=== PATIENT | male | born 1940 | race Two or more races ===

== ENCOUNTER 2022-06-17 13:09 | Inpatient (IN) | payer OTHER ==
[~2022-06-17] VITALS: Ht 167.6 cm; Wt 129.7 kg
[2022-06-17] MEDS ORDERED: HYDRALAZINE HCL50 MG PO (13:18)
[2022-06-17] MEDS ORDERED: FUROSEMIDE40 MG PO (13:18)
[2022-06-17] MEDS ORDERED: METOLAZONE2.5 MG PO (13:18)
[2022-06-17] MEDS ORDERED: ELIQUIS2.5 MG PO (13:18)
[2022-06-17] MEDS ORDERED: METOPROLOL SUCC25 MG PO (13:19)
[2022-07-02] MEDS ORDERED: HYDRALAZINE HCL50 MG PO (17:28)
[2022-07-02] MEDS ORDERED: TOPROL XL25 M1 PO (17:28)
[2022-07-02] MEDS ORDERED: METOLAZONE2.5 MG PO (17:29)
[2022-07-02] MEDS ORDERED: FUROSEMIDE40 MG PO (17:30)
[2022-07-02] MEDS ORDERED: LEVOTHYROXINE50 MCG PO (17:31)
== END 2022-07-02 18:06 | disposition home or self-care (01) | DRG 291 ==
LOC: ER 13:09 → MEDI 19:58 → MEDJ 19:58
PROVIDERS: ADMIT Internal Medicine; ATTEND Internal Medicine
PROC: BW25ZZZ Computerized Tomography (CT Scan) of Chest, Abdomen and Pelvis (ICD-10-PCS; 2022-06-17)
PROC: B24BYZZ Ultrasonography of Heart with Aorta using Other Contrast (ICD-10-PCS; 2022-06-17)
PROC: 4A12X4Z Monitoring of Cardiac Electrical Activity, External Approach (ICD-10-PCS; 2022-06-17)
PROC: 0W993ZZ Drainage of Right Pleural Cavity, Percutaneous Approach (ICD-10-PCS; principal; 2022-06-19)
PROC: 0W9B3ZZ Drainage of Left Pleural Cavity, Percutaneous Approach (ICD-10-PCS; 2022-06-23)
PROC: 30233N1 Transfusion of Nonautologous Red Blood Cells into Peripheral Vein, Percutaneous Approach (ICD-10-PCS; 2022-06-26)
DX: I13.0 Hypertensive heart and chronic kidney disease with heart failure and stage 1 through stage 4 chronic kidney disease, or unspecified chronic kidney disease (principal); I50.33 Acute on chronic diastolic (congestive) heart failure; J91.8 Pleural effusion in other conditions classified elsewhere; N17.9 Acute kidney failure, unspecified; J98.11 Atelectasis; N39.0 Urinary tract infection, site not specified; B96.20 Unspecified Escherichia coli [E. coli] as the cause of diseases classified elsewhere; B95.2 Enterococcus as the cause of diseases classified elsewhere; D63.1 Anemia in chronic kidney disease; E11.22 Type 2 diabetes mellitus with diabetic chronic kidney disease; N18.9 Chronic kidney disease, unspecified; I48.91 Unspecified atrial fibrillation

== ENCOUNTER 2022-07-24 08:40 | Inpatient (IN) | payer OTHER ==
[~2022-07-24] VITALS: Ht 167.6 cm; Wt 56.7 kg
[~2022-07-24 08:40] MED LIST: ELIQUIS2.5 MG PO; FUROSEMIDE40 MG PO; HYDRALAZINE HCL50 MG PO; LEVOTHYROXINE50 MCG PO; METOLAZONE2.5 MG PO; METOPROLOL SUCC25 MG PO; TOPROL XL25 M1 PO
--- NOTE | 2022-07-24 08:58 | NUR ---
SE RECIBE PTE ALERTA Y ORIENTADO X3 PTE REFIERE QUE SE KATHERINE CAMINANDO, SE OBSERVA HEMATOMA AREA FRONTAL,NARIZ CON SANGRADO INTERMITENTE Y PIES CON LACERACION, SE LE HACE LA PREGUNTA SI PERDIO CONOCIMIENTO REFIERE NO, SE REALIZA LIMPIEZA DE LAS HERIDAS Y SE ASAD EN CASTILLO DE ESPERA
--- NOTE | 2022-07-24 10:38 | NUR ---
SE ORIENTA A PACIENTE SOBRE TRATAMIENTO EL MISMO REFIERE ENTENDER. SE LE ADM MEDICAMENTOS POR ORDEN MEDICA SE MARGARETH MEDIDAS ASEPTICAS. SE CANALIZA PACIENTE EN MANO DERECHA #22. Y SE MARGARETH MUESTRAS DE LAB, SE COLOCA PACIENTE EN CAMA #8 NEN COMPANIA DE FAMILIAR Y SE ENTREGA A PACIENTE A LIDER DEL TURNO OBSERVACION.
--- NOTE | 2022-07-24 15:42 | NUR ---
PTE ALERTA Y ACTIVO EN COMPANIA DE FAMILIAR,EN SOPHIE CON BARANDAS ELEVADSS,AREA DE VENOPUNCION PATENTE Y MARIOLA DE EDEMA CON HL.SE LE ADMINISTRA MEDICAMENTO SUMMER ORDEN MEDICA.PENDIENTE A RE-EVALUACION.
[2022-08-04] MEDS ORDERED: TOPROL XL25 M1 PO (17:42)
[2022-08-04] MEDS ORDERED: FUROSEMIDE40 MG PO (17:43)
[2022-08-04] MEDS ORDERED: LEVOTHYROXINE50 MCG PO (17:44)
[2022-08-04] MEDS ORDERED: NORVASC5 MG PO (17:47)
[2022-08-04] MEDS ORDERED: HYDRALAZINE HCL25 MG PO (17:53)
== END 2022-08-04 20:10 | disposition home or self-care (01) | DRG 291 ==
LOC: ER 08:40 → MEDJ 20:35 → SURH 20:35 → MEDJ 07-26 22:33
PROVIDERS: ADMIT Internal Medicine; ATTEND Internal Medicine
PROC: 4A12X4Z Monitoring of Cardiac Electrical Activity, External Approach (ICD-10-PCS; 2022-07-24)
PROC: BN25ZZZ Computerized Tomography (CT Scan) of Facial Bones (ICD-10-PCS; 2022-07-24)
PROC: BR20ZZZ Computerized Tomography (CT Scan) of Cervical Spine (ICD-10-PCS; 2022-07-24)
PROC: BW28ZZZ Computerized Tomography (CT Scan) of Head (ICD-10-PCS; 2022-07-24)
PROC: BW24ZZZ Computerized Tomography (CT Scan) of Chest and Abdomen (ICD-10-PCS; 2022-07-24)
PROC: B24BYZZ Ultrasonography of Heart with Aorta using Other Contrast (ICD-10-PCS; 2022-07-24)
PROC: 8E0ZXY6 Isolation (ICD-10-PCS; 2022-07-25)
PROC: 0W993ZZ Drainage of Right Pleural Cavity, Percutaneous Approach (ICD-10-PCS; principal; 2022-07-29)
PROC: 0W9B3ZZ Drainage of Left Pleural Cavity, Percutaneous Approach (ICD-10-PCS; 2022-07-30)
DX: I13.0 Hypertensive heart and chronic kidney disease with heart failure and stage 1 through stage 4 chronic kidney disease, or unspecified chronic kidney disease (principal); I50.23 Acute on chronic systolic (congestive) heart failure; U07.1 COVID-19; J91.8 Pleural effusion in other conditions classified elsewhere; N17.9 Acute kidney failure, unspecified; E11.22 Type 2 diabetes mellitus with diabetic chronic kidney disease; N18.9 Chronic kidney disease, unspecified; D63.1 Anemia in chronic kidney disease; D50.8 Other iron deficiency anemias; I48.91 Unspecified atrial fibrillation; E03.9 Hypothyroidism, unspecified; Z79.84 Long term (current) use of oral hypoglycemic drugs; S02.2XXA Fracture of nasal bones, initial encounter for closed fracture; S09.93XA Unspecified injury of face, initial encounter; W18.30XA Fall on same level, unspecified, initial encounter; Y93.01 Activity, walking, marching and hiking; Y92.410 Unspecified street and highway as the place of occurrence of the external cause

== ENCOUNTER 2022-09-03 16:49 | Inpatient (IN) | payer OTHER ==
[~2022-09-03] VITALS: Ht 165.1 cm; Wt 57.2 kg
[~2022-09-03 16:49] MED LIST changes: +HYDRALAZINE HCL25 MG PO; +NORVASC5 MG PO
--- NOTE | 2022-09-03 17:23 | NUR ---
PTE SE OBSERVA A/O X4. PTE SE OBSERVA CON PRESION BALTA Y SE LE REALIZA EKG. ES EVALUADO POR DR MONK. PTE SE OBSERVA CON EDEMA EN EXTREMIDADES SUPERIORES Y INFERIORES.
--- NOTE | 2022-09-03 19:15 | NUR ---
SE EDUCA A PTE SOBRE TX MEDICO TALI REFIERE ENTENDER, SE MARGARETH MUESTRAS DE LABORATORIO UTILIZANDO MEDIDAS ASEPTICAS. SE COLOCA H/L A PTE Y SE ADMINISTRAN MEDICAMENTOS LOS CUALES TOLERA. SE NOTIFICA ESTUDIO DE RX PENDIENTE.
[2022-09-12] MEDS ORDERED: HYDRALAZINE HCL50 MG PO (17:06)
[2022-09-12] MEDS ORDERED: FUROSEMIDE40 MG PO (17:06)
[2022-09-12] MEDS ORDERED: ELIQUIS2.5 MG PO (17:06)
[2022-09-12] MEDS ORDERED: CARVEDILOL3.125 MG PO (17:06)
[2022-09-12] MEDS ORDERED: NIFEDIPINE ER30 M1 PO (17:07)
== END 2022-09-12 17:37 | disposition home or self-care (01) | DRG 291 ==
LOC: ER 16:49 → MEDI 09-04 00:44 → SEC-K 09-04 05:00 → MEDI 09-04 08:38
PROVIDERS: ADMIT Internal Medicine; ATTEND Internal Medicine
PROC: 4A12X4Z Monitoring of Cardiac Electrical Activity, External Approach (ICD-10-PCS; 2022-09-04)
PROC: B24BYZZ Ultrasonography of Heart with Aorta using Other Contrast (ICD-10-PCS; 2022-09-04)
PROC: BW24ZZZ Computerized Tomography (CT Scan) of Chest and Abdomen (ICD-10-PCS; 2022-09-04)
PROC: 30233N1 Transfusion of Nonautologous Red Blood Cells into Peripheral Vein, Percutaneous Approach (ICD-10-PCS; 2022-09-06)
PROC: 0W993ZZ Drainage of Right Pleural Cavity, Percutaneous Approach (ICD-10-PCS; principal; 2022-09-09)
PROC: 0W9B3ZZ Drainage of Left Pleural Cavity, Percutaneous Approach (ICD-10-PCS; 2022-09-10)
DX: I13.0 Hypertensive heart and chronic kidney disease with heart failure and stage 1 through stage 4 chronic kidney disease, or unspecified chronic kidney disease (principal); I50.33 Acute on chronic diastolic (congestive) heart failure; I16.9 Hypertensive crisis, unspecified; J91.8 Pleural effusion in other conditions classified elsewhere; N39.0 Urinary tract infection, site not specified; N17.9 Acute kidney failure, unspecified; I48.20 Chronic atrial fibrillation, unspecified; D63.8 Anemia in other chronic diseases classified elsewhere; N18.9 Chronic kidney disease, unspecified; Z74.01 Bed confinement status

== ENCOUNTER 2022-10-02 09:29 | Inpatient (IN) | payer OTHER ==
[~2022-10-02] VITALS: Ht 167.6 cm; Wt 54.4 kg
[~2022-10-02 09:29] MED LIST changes: +CARVEDILOL3.125 MG PO; +NIFEDIPINE ER30 M1 PO
--- NOTE | 2022-10-02 09:58 | NUR ---
SE RECIBE PTE ALERTA Y ORIENTADO X3 EL MISMO REFIERE INFLAMACION EN PIERNAS, LAS CUALE S SE OBSERVAN INFLAMADAS, SE OBSERVA TORAX INFLAMADO. PACIENTE REFIERE QUE A PRESENTADO HX DE AGUA EN PULMONES Y PROBLEMAS EN RINONES.
--- NOTE | 2022-10-02 10:26 | NUR ---
PACIENTE EVALUADO POR DR BEATTY QUIEN ORDENA TRATAMIENTO MEDICO, SE LE ORIENTA A PACIENTE Y FAMILIAR SOBRE EL MISMO Y VERBALIZA ENTENDER, SE LE COLECTAN MUESTRAS DE LABORATORIO Y SE LE ADMINISTRA MED SUMMER ORDEN. SE LE REALIZA EKG Y SE NOTIFICAN TERAPIAS A PERSONAL DE TERAPIA RESPIRTORIA ABG PENDIETNES.
--- NOTE | 2022-10-02 10:46 | NUR ---
SE CANALIZA PACIENTE BAJO MEDIDAS ASEPTICAS, SE LE COLOCA H/L CON ANGIO # 20 EL MISMO SE ENCUENTRA PATENTE, MARIOLA DE EDEMA Y ERITEMA.
--- NOTE | 2022-10-02 11:32 | NUR ---
BP MANUAL: 220/110 mmHg SE LE NOTIFICA A DR BEATTY QUIEN ORDENA CATAPRESS 0.2MG PO, SE ADMINISTRAN MED SUMMER ORDEN AL MOMENTO PACIENTE TOLERA EL MISMO Y NO PRESENTA REACCION ADVERSA.
--- NOTE | 2022-10-02 11:36 | NUR ---
SE NOTIFICA ESTUDIO DE CT A PERSONAL CORRESPONDIENTE.
--- NOTE | 2022-10-02 15:20 | NUR ---
SE RECIBE PTE ALERTA Y ORIENTADO X3 EN SOPHIE BAJA CON BARANDAS ELEVADAS POR SEGURIDAD. SE OBSERVA PTE CON BUEN PATRON RESPIRATORIO. H/L EN PERIFERAL LT CON ANGIO #20 PATENTE. PEND RESULTADOS DE LABORATORIO Y CONS CON DR. MCKENZIE.
== END 2022-10-07 22:37 | disposition home or self-care (01) | DRG 291 ==
LOC: ER 09:29 → SEC-K 16:33 → MEDI 16:33 → MEDJ 10-03 15:41 → SEC-K 10-03 15:55 → MEDJ 10-04 00:10 → SEC-K 10-04 00:13 → MEDJ 10-04 17:51 → MEDI 10-04 18:29
PROVIDERS: ADMIT Internal Medicine; ATTEND Internal Medicine
PROC: BW24ZZZ Computerized Tomography (CT Scan) of Chest and Abdomen (ICD-10-PCS; 2022-10-02)
PROC: B24BZZZ Ultrasonography of Heart with Aorta (ICD-10-PCS; 2022-10-02)
PROC: 0W993ZZ Drainage of Right Pleural Cavity, Percutaneous Approach (ICD-10-PCS; principal; 2022-10-03)
PROC: 30233N1 Transfusion of Nonautologous Red Blood Cells into Peripheral Vein, Percutaneous Approach (ICD-10-PCS; 2022-10-04)
DX: I13.0 Hypertensive heart and chronic kidney disease with heart failure and stage 1 through stage 4 chronic kidney disease, or unspecified chronic kidney disease (principal); I50.33 Acute on chronic diastolic (congestive) heart failure; I48.20 Chronic atrial fibrillation, unspecified; J91.8 Pleural effusion in other conditions classified elsewhere; N17.9 Acute kidney failure, unspecified; N39.0 Urinary tract infection, site not specified; N18.30 Chronic kidney disease, stage 3 unspecified; D63.1 Anemia in chronic kidney disease; E03.9 Hypothyroidism, unspecified; Z79.01 Long term (current) use of anticoagulants

== ENCOUNTER 2022-10-13 12:36 | Emergency (ER) | payer OTHER ==
[~2022-10-13] VITALS: Ht 167.6 cm; Wt 47.6 kg
== END 2022-10-13 19:37 | disposition home or self-care (01) ==
LOC: ER 12:36
DX: I10 Essential (primary) hypertension (principal)

== ENCOUNTER 2022-12-18 17:08 | Inpatient (IN) | payer OTHER ==
[~2022-12-18] VITALS: Ht 167.6 cm; Wt 54.4 kg
[2022-12-18] MEDS ORDERED: HYDRALAZINE HCL50 MG (17:36)
[2022-12-18] MEDS ORDERED: LOSARTAN POTASS50 MG (17:37)
[2022-12-18 18:23] LABS: HEMATOCRIT 24.8 % (39.0-48.0); MEAN CORPUSCULAR HGB CONC 32.9 g/dl (32.0-36.0); PLATELET COUNT 169 K/uL (150-450); RED BLOOD COUNT 3.31 M/uL (4.00-6.00); RED CELL DISTRIBUTION WIDTH 16.4 % (11.5-14.5)
[2022-12-18 18:28] LABS: MEAN CORPUSCULAR HEMOGLOBIN 24.7 pg (27.00-32.0)
[2022-12-18 18:29] LABS: HEMOGLOBIN 8.2 g/dL (13-16.00)
[2022-12-18 18:41] LABS: ALBUMIN 3.1 gm/dL (3.4-5.0); BILIRUBIN TOTAL 0.24 mg/dL (0.3-1.2); CALCIUM 8.5 mg/dL (8.5-10.1); CREATININE SERUM 2.09 mg/dL (0.70-1.30); GFR 30.55; GLOBULINA 2.9 G/DL (2.4-3.5); POTASSIUM 4.86 mEq/L (3.5-5.1)
[2022-12-18 21:52] LABS: MAGNESIUM 2.1 mg/dL (1.8-2.4); PHOSPHOROUS 3.8 mg/dL (2.5-4.9)
[2022-12-18 21:59] LABS: D DIMER 8.42 MG/L
[2022-12-18 22:04] LABS: INR 1.04; PROTHROMBIN TIME 10.9 SECONDS (9.0-11.5)
[2022-12-18 23:33] LABS: ABG PH 7.419 (7.35-7.45); ABG PO2 95.7 mmHg (80-100); ABG pCO2 35.2 mmHg (35-45); BASE EXCESS -1.6 mmol/l; BICARBONATE 22.3 mmol/l (23-25); Tco2 23.4 mmol/l
[2022-12-18 23:34] LABS: allen test SATISFACTORY; o2 21 %; puncture site RADIAL LEFT
[2022-12-18 23:35] LABS: SaO2 97.5 %
[2022-12-20 08:26] LABS: HEMATOCRIT 29.2 % (39.0-48.0); HEMOGLOBIN 9.3 g/dL (13-16.00); MEAN CELL VOLUME 76.2 fL (80.0-100.00); MEAN CORPUSCULAR HEMOGLOBIN 24.3 pg (27.00-32.0); MEAN CORPUSCULAR HGB CONC 31.8 g/dl (32.0-36.0); PLATELET COUNT 166 K/uL (150-450); RED BLOOD COUNT 3.83 M/uL (4.00-6.00); RED CELL DISTRIBUTION WIDTH 16.5 % (11.5-14.5)
[2022-12-20 08:29] LABS: ALBUMIN 3.1 gm/dL (3.4-5.0); CALCIUM 8.7 mg/dL (8.5-10.1); CREATININE SERUM 2.03 mg/dL (0.70-1.30); GFR 31.6; PHOSPHOROUS 4.3 mg/dL (2.5-4.9); POTASSIUM 5.18 mEq/L (3.5-5.1)
[2022-12-20 11:35] LABS: RH POSITIVE
[2022-12-21 18:19] LABS: HEMATOCRIT 32.6 % (39.0-48.0); MEAN CELL VOLUME 76.4 fL (80.0-100.00); MEAN CORPUSCULAR HGB CONC 33.1 g/dl (32.0-36.0); PLATELET COUNT 159 K/uL (150-450); RED BLOOD COUNT 4.27 M/uL (4.00-6.00)
[2022-12-21 18:21] LABS: HEMOGLOBIN 10.8 g/dL (13-16.00); MEAN CORPUSCULAR HEMOGLOBIN 25.2 pg (27.00-32.0)
[2022-12-23 07:56] LABS: ABG PH 7.403 (7.35-7.45); ABG PO2 80.7 mmHg (80-100); ABG pCO2 47.2 mmHg (35-45); BASE EXCESS 3.2 mmol/l; BICARBONATE 28.8 mmol/l (23-25); SaO2 95.9 %; Tco2 30.2 mmol/l
[2022-12-23 08:02] LABS: allen test SATISFACTORY; o2 21 %; puncture site RADIAL RIGHT
[2022-12-24 11:45] LABS: CALCIUM 8.6 mg/dL (8.5-10.1); CREATININE SERUM 2.54 mg/dL (0.70-1.30); GFR 24.4; POTASSIUM 4.52 mEq/L (3.5-5.1)
== END 2022-12-24 14:08 | disposition home or self-care (01) | DRG 291 ==
LOC: ER 17:08 → MEDI 20:40 → SEC-K 20:40 → MEDI 21:45
PROVIDERS: General Practice; Internal Medicine; Internal Medicine Nephrology; ADMIT Internal Medicine; ATTEND Internal Medicine
PROC: BW24ZZZ Computerized Tomography (CT Scan) of Chest and Abdomen (ICD-10-PCS; 2022-12-18)
PROC: B54BZZZ Ultrasonography of Right Lower Extremity Veins (ICD-10-PCS; 2022-12-18)
PROC: 0W993ZZ Drainage of Right Pleural Cavity, Percutaneous Approach (ICD-10-PCS; principal; 2022-12-19)
PROC: 4A12X4Z Monitoring of Cardiac Electrical Activity, External Approach (ICD-10-PCS; 2022-12-19)
DX: I13.0 Hypertensive heart and chronic kidney disease with heart failure and stage 1 through stage 4 chronic kidney disease, or unspecified chronic kidney disease (principal); I50.33 Acute on chronic diastolic (congestive) heart failure; N17.9 Acute kidney failure, unspecified; N18.30 Chronic kidney disease, stage 3 unspecified; D63.1 Anemia in chronic kidney disease; I48.0 Paroxysmal atrial fibrillation; E03.9 Hypothyroidism, unspecified; Z20.822 Contact with and (suspected) exposure to COVID-19; Z74.01 Bed confinement status

== ENCOUNTER 2023-01-13 12:19 | Inpatient (IN) | payer OTHER ==
[~2023-01-13] VITALS: Ht 167.6 cm; Wt 54.4 kg
[~2023-01-13 12:19] MED LIST changes: +HYDRALAZINE HCL50 MG; +LOSARTAN POTASS50 MG
[2023-01-13 15:36] LABS: HEMATOCRIT 27.9 % (39.0-48.0); MEAN CELL VOLUME 76.3 fL (80.0-100.00); MEAN CORPUSCULAR HEMOGLOBIN 24.8 pg (27.00-32.0); MEAN CORPUSCULAR HGB CONC 32.4 g/dl (32.0-36.0); PLATELET COUNT 155 K/uL (150-450); RED BLOOD COUNT 3.65 M/uL (4.00-6.00); RED CELL DISTRIBUTION WIDTH 16.7 % (11.5-14.5)
[2023-01-13 16:06] LABS: BILIRUBIN TOTAL 0.41 mg/dL (0.3-1.2); CALCIUM 8.9 mg/dL (8.5-10.1); CREATININE SERUM 2.35 mg/dL (0.70-1.30); GFR 26.69; GLOBULINA 2.9 G/DL (2.4-3.5); POTASSIUM 5.16 mEq/L (3.5-5.1); TOTAL PROTEIN 5.9 gm/dL (6.4-8.2)
[2023-01-13 19:14] LABS: PH,URINE 6.5 (5.0-8.0); URINE APPEARANCE Clear; URINE BILIRRUBIN Negative (NEGATIVE); URINE BLOOD Large; URINE COLOR Yellow; URINE GLUCOSE Negative (NEGATIVE); URINE LEUKOCYTE Negative; URINE NITRATE Negative; URINE UROBILINOGEN 0.2 E.U./dl
[2023-01-13 19:17] LABS: URINE BACTERIA 144.8 uL (0.0-1933); URINE EPITHELIAL CELLS 2.6 uL (0.0-38.8); URINE WBC 78.8 uL (0.0-23.2)
[2023-01-13 19:27] LABS: URINE PROTEIN 300 (NEGATIVE)
[2023-01-13 21:37] LABS: ABG PH 7.432 (7.35-7.45); ABG PO2 73.5 mmHg (80-100); ABG pCO2 33.6 mmHg (35-45); BASE EXCESS -1.5 mmol/l; BICARBONATE 21.9 mmol/l (23-25)
[2023-01-13 21:39] LABS: allen test SATISFACTORY; o2 21 %; puncture site RADIAL LEFT
[2023-01-14 01:03] LABS: INR 1.05
[2023-01-14 01:10] LABS: D DIMER 4.76 MG/L; PARTIAL THROMBOPLASTIN TIME 26.8 SECONDS (22.0-34.0)
[2023-01-14 01:16] LABS: MAGNESIUM 2.1 mg/dL (1.8-2.4); PHOSPHOROUS 4.7 mg/dL (2.5-4.9)
[2023-01-15 06:23] LABS: MEAN CELL VOLUME 75.3 fL (80.0-100.00); MEAN CORPUSCULAR HGB CONC 33.2 g/dl (32.0-36.0); PLATELET COUNT 161 K/uL (150-450); RED BLOOD COUNT 3.19 M/uL (4.00-6.00); RED CELL DISTRIBUTION WIDTH 16.4 % (11.5-14.5)
[2023-01-15 06:52] LABS: ALBUMIN 3.3 gm/dL (3.4-5.0); BILIRUBIN TOTAL 0.41 mg/dL (0.3-1.2); CALCIUM 8.9 mg/dL (8.5-10.1); CREATININE SERUM 2.88 mg/dL (0.70-1.30); GFR 21.1; GLOBULINA 2.3 G/DL (2.4-3.5); POTASSIUM 5.41 mEq/L (3.5-5.1); TOTAL PROTEIN 5.6 gm/dL (6.4-8.2)
[2023-01-16 07:28] LABS: HEMATOCRIT 25.6 % (39.0-48.0); MEAN CELL VOLUME 75.1 fL (80.0-100.00); MEAN CORPUSCULAR HGB CONC 33.2 g/dl (32.0-36.0); PLATELET COUNT 163 K/uL (150-450); RED BLOOD COUNT 3.41 M/uL (4.00-6.00); RED CELL DISTRIBUTION WIDTH 16.3 % (11.5-14.5)
[2023-01-16 08:43] LABS: HEMOGLOBIN 8.5 g/dL (13-16.00); MEAN CORPUSCULAR HEMOGLOBIN 24.9 pg (27.00-32.0)
[2023-01-17 08:32] LABS: CALCIUM 8.5 mg/dL (8.5-10.1); CREATININE SERUM 3.01 mg/dL (0.70-1.30); GFR 20.06; POTASSIUM 5.27 mEq/L (3.5-5.1)
[2023-01-17 10:08] LABS: ALBUMIN 2.9 gm/dL (3.4-5.0); PHOSPHOROUS 4.7 mg/dL (2.5-4.9)
[2023-01-18 15:17] LABS: HEMATOCRIT 26.6 % (39.0-48.0); MEAN CORPUSCULAR HEMOGLOBIN 24.5 pg (27.00-32.0); MEAN CORPUSCULAR HGB CONC 32.7 g/dl (32.0-36.0); PLATELET COUNT 172 K/uL (150-450); RED BLOOD COUNT 3.55 M/uL (4.00-6.00); RED CELL DISTRIBUTION WIDTH 16.3 % (11.5-14.5)
[2023-01-18 15:31] LABS: HEMOGLOBIN 8.7 g/dL (13-16.00)
[2023-01-18 15:35] LABS: CALCIUM 8.4 mg/dL (8.5-10.1); CREATININE SERUM 3.27 mg/dL (0.70-1.30); GFR 18.23; POTASSIUM 4.57 mEq/L (3.5-5.1)
[2023-01-19 07:11] LABS: CALCIUM 8.3 mg/dL (8.5-10.1); CREATININE SERUM 3.12 mg/dL (0.70-1.30); GFR 19.24; POTASSIUM 4.24 mEq/L (3.5-5.1)
[2023-01-19 07:37] LABS: HEMATOCRIT 23.7 % (39.0-48.0); MEAN CELL VOLUME 75.2 fL (80.0-100.00); MEAN CORPUSCULAR HGB CONC 33.1 g/dl (32.0-36.0); PLATELET COUNT 162 K/uL (150-450); RED BLOOD COUNT 3.15 M/uL (4.00-6.00); RED CELL DISTRIBUTION WIDTH 16.3 % (11.5-14.5)
[2023-01-19 07:45] LABS: HEMOGLOBIN 7.9 g/dL (13-16.00)
[2023-01-20 05:29] LABS: CALCIUM 8.6 mg/dL (8.5-10.1); CREATININE SERUM 2.89 mg/dL (0.70-1.30); GFR 21.02; POTASSIUM 4.54 mEq/L (3.5-5.1)
[2023-01-21 00:16] LABS: HEMATOCRIT 29.3 % (39.0-48.0); MEAN CELL VOLUME 77.8 fL (80.0-100.00); MEAN CORPUSCULAR HEMOGLOBIN 25.4 pg (27.00-32.0); MEAN CORPUSCULAR HGB CONC 32.6 g/dl (32.0-36.0); PLATELET COUNT 164 K/uL (150-450); RED BLOOD COUNT 3.77 M/uL (4.00-6.00); RED CELL DISTRIBUTION WIDTH 17.1 % (11.5-14.5)
[2023-01-21 00:17] LABS: HEMOGLOBIN 9.6 g/dL (13-16.00)
== END 2023-01-21 21:20 | disposition home or self-care (01) | DRG 291 ==
LOC: ER 12:19 → ICU-2 22:56 → ICU 01-14 14:30 → MEDI 01-16 20:03
PROVIDERS: Emergency Medicine; General Practice; ADMIT Internal Medicine; ATTEND Internal Medicine
PROC: BB24ZZZ Computerized Tomography (CT Scan) of Bilateral Lungs (ICD-10-PCS; principal; 2023-01-13)
PROC: B246ZZZ Ultrasonography of Right and Left Heart (ICD-10-PCS; 2023-01-13)
PROC: 0W993ZZ Drainage of Right Pleural Cavity, Percutaneous Approach (ICD-10-PCS; 2023-01-16)
DX: I13.0 Hypertensive heart and chronic kidney disease with heart failure and stage 1 through stage 4 chronic kidney disease, or unspecified chronic kidney disease (principal); I50.33 Acute on chronic diastolic (congestive) heart failure; N17.8 Other acute kidney failure; N18.30 Chronic kidney disease, stage 3 unspecified; D63.1 Anemia in chronic kidney disease; I48.0 Paroxysmal atrial fibrillation; E78.5 Hyperlipidemia, unspecified; R60.0 Localized edema

== ENCOUNTER 2023-02-05 10:46 | Inpatient (IN) | payer OTHER ==
[~2023-02-05] VITALS: Ht 162.6 cm; Wt 68.0 kg
[2023-02-05] MEDS ORDERED: AMLODIPINE-OLM1 EAC2 (12:43)
[2023-02-05 13:41] LABS: HEMATOCRIT 29.8 % (39.0-48.0); HEMOGLOBIN 9.6 g/dL (13-16.00); MEAN CELL VOLUME 78.3 fL (80.0-100.00); MEAN CORPUSCULAR HEMOGLOBIN 25.4 pg (27.00-32.0); MEAN CORPUSCULAR HGB CONC 32.4 g/dl (32.0-36.0); PLATELET COUNT 199 K/uL (150-450); RED CELL DISTRIBUTION WIDTH 17.1 % (11.5-14.5)
[2023-02-05 14:17] LABS: CALCIUM 8.4 mg/dL (8.5-10.1); CREATININE SERUM 2.37 mg/dL (0.70-1.30); GFR 26.43; POTASSIUM 4.53 mEq/L (3.5-5.1)
[2023-02-05 20:31] LABS: ABG PH 7.414 (7.35-7.45); ABG PO2 76.7 mmHg (80-100); ABG pCO2 34.9 mmHg (35-45); BICARBONATE 21.9 mmol/l (23-25); SaO2 95.3 %; Tco2 22.9 mmol/l
[2023-02-05 20:32] LABS: allen test SATISFACTORY; o2 21 %; puncture site RADIAL LEFT
[2023-02-05 21:03] LABS: URINE BACTERIA 322.5 uL (0.0-1933); URINE EPITHELIAL CELLS 6.9 uL (0.0-38.8); URINE WBC 123.6 uL (0.0-23.2)
[2023-02-05 21:09] LABS: PH,URINE 6.5 (5.0-8.0); URINE APPEARANCE Clear; URINE BILIRRUBIN Negative (NEGATIVE); URINE BLOOD Large; URINE COLOR Orange; URINE GLUCOSE Negative (NEGATIVE); URINE LEUKOCYTE Trace; URINE NITRATE Negative; URINE PROTEIN >=1000 (NEGATIVE); URINE UROBILINOGEN 0.2 E.U./dl
[2023-02-05 21:22] LABS: PROTHROMBIN TIME 10.5 SECONDS (9.0-11.5)
[2023-02-05 21:25] LABS: MAGNESIUM 2.1 mg/dL (1.8-2.4); PHOSPHOROUS 4.5 mg/dL (2.5-4.9)
[2023-02-07 08:01] LABS: MEAN CELL VOLUME 77.2 fL (80.0-100.00); MEAN CORPUSCULAR HGB CONC 33.1 g/dl (32.0-36.0); PLATELET COUNT 166 K/uL (150-450); RED BLOOD COUNT 3.06 M/uL (4.00-6.00); RED CELL DISTRIBUTION WIDTH 16.8 % (11.5-14.5)
[2023-02-07 08:06] LABS: HEMATOCRIT 23.6 % (39.0-48.0); MEAN CORPUSCULAR HEMOGLOBIN 25.4 pg (27.00-32.0)
[2023-02-07 08:09] LABS: HEMOGLOBIN 7.8 g/dL (13-16.00)
[2023-02-07 08:29] LABS: ALBUMIN 2.4 gm/dL (3.4-5.0); BILIRUBIN TOTAL 0.23 mg/dL (0.3-1.2); CREATININE SERUM 2.54 mg/dL (0.70-1.30); GFR 24.4; POTASSIUM 4.93 mEq/L (3.5-5.1); TOTAL PROTEIN 4.4 gm/dL (6.4-8.2)
[2023-02-08 20:02] LABS: HEMATOCRIT 45.7 % (39.0-48.0); MEAN CELL VOLUME 79.2 fL (80.0-100.00); MEAN CORPUSCULAR HGB CONC 34.2 g/dl (32.0-36.0); PLATELET COUNT 189 K/uL (150-450); RED BLOOD COUNT 5.77 M/uL (4.00-6.00); RED CELL DISTRIBUTION WIDTH 17.6 % (11.5-14.5)
[2023-02-08 20:50] LABS: HEMOGLOBIN 15.6 g/dL (13-16.00)
[2023-02-09 07:40] LABS: HEMATOCRIT 39.5 % (39.0-48.0); HEMOGLOBIN 13.4 g/dL (13-16.00); MEAN CELL VOLUME 79.3 fL (80.0-100.00); MEAN CORPUSCULAR HEMOGLOBIN 26.8 pg (27.00-32.0); MEAN CORPUSCULAR HGB CONC 33.9 g/dl (32.0-36.0); PLATELET COUNT 176 K/uL (150-450); RED BLOOD COUNT 4.99 M/uL (4.00-6.00); RED CELL DISTRIBUTION WIDTH 17.9 % (11.5-14.5)
[2023-02-11 08:08] LABS: ALBUMIN 2.7 gm/dL (3.4-5.0); CALCIUM 8.5 mg/dL (8.5-10.1); CREATININE SERUM 3.15 mg/dL (0.70-1.30); GFR 19.03; PHOSPHOROUS 4.9 mg/dL (2.5-4.9); POTASSIUM 4.21 mEq/L (3.5-5.1)
== END 2023-02-11 19:53 | disposition home or self-care (01) | DRG 186 ==
LOC: ER 10:46 → MEDJ 18:55 → MEDI 18:55 → MEDJ 21:36
PROVIDERS: Emergency Medicine; General Practice; Internal Medicine; Internal Medicine Nephrology; ADMIT Internal Medicine; ATTEND Internal Medicine
PROC: BB24ZZZ Computerized Tomography (CT Scan) of Bilateral Lungs (ICD-10-PCS; 2023-02-05)
PROC: 0W993ZZ Drainage of Right Pleural Cavity, Percutaneous Approach (ICD-10-PCS; principal; 2023-02-06)
PROC: 4A12X4Z Monitoring of Cardiac Electrical Activity, External Approach (ICD-10-PCS; 2023-02-06)
PROC: B246ZZZ Ultrasonography of Right and Left Heart (ICD-10-PCS; 2023-02-07)
PROC: 30233N1 Transfusion of Nonautologous Red Blood Cells into Peripheral Vein, Percutaneous Approach (ICD-10-PCS; 2023-02-07)
DX: J90 Pleural effusion, not elsewhere classified (principal); I50.33 Acute on chronic diastolic (congestive) heart failure; I13.0 Hypertensive heart and chronic kidney disease with heart failure and stage 1 through stage 4 chronic kidney disease, or unspecified chronic kidney disease; I31.39 Other pericardial effusion (noninflammatory); N17.8 Other acute kidney failure; I48.0 Paroxysmal atrial fibrillation; E03.9 Hypothyroidism, unspecified; N18.30 Chronic kidney disease, stage 3 unspecified; D64.89 Other specified anemias; R60.0 Localized edema; Z74.01 Bed confinement status

== ENCOUNTER 2023-05-10 14:23 | Inpatient (IN) | payer OTHER ==
[~2023-05-10] VITALS: Ht 172.7 cm; Wt 61.2 kg
[~2023-05-10 14:23] MED LIST changes: +AMLODIPINE-OLM1 EAC2
[2023-05-10] MEDS ORDERED: 0.9 % SODIUM CHLORIDE 1,000 ML IV STA (15:25)
[2023-05-10] MEDS ORDERED: FAMOtidine 10 MG/ML (4ML VIAL) IV STA (15:26)
[2023-05-10 16:30] LABS: HEMATOCRIT 30.6 % (39.0-48.0); MEAN CELL VOLUME 73.8 fL (80.0-100.00); MEAN CORPUSCULAR HGB CONC 32.4 g/dl (32.0-36.0); PLATELET COUNT 182 K/uL (150-450); RED BLOOD COUNT 4.15 M/uL (4.00-6.00); RED CELL DISTRIBUTION WIDTH 16.2 % (11.5-14.5)
[2023-05-10 16:31] LABS: MEAN CORPUSCULAR HEMOGLOBIN 23.8 pg (27.00-32.0)
[2023-05-10 16:32] LABS: HEMOGLOBIN 9.9 g/dL (13-16.00)
[2023-05-10 16:47] LABS: CALCIUM 8.3 mg/dL (8.5-10.1); CREATININE SERUM 2.72 mg/dL (0.70-1.30); GFR 22.49; POTASSIUM 5.79 mEq/L (3.5-5.1)
[2023-05-10 16:47] LABS: PH,URINE 5.5 (5.0-8.0); URINE APPEARANCE Cloudy; URINE BILIRRUBIN Negative (NEGATIVE); URINE BLOOD Large; URINE COLOR Yellow; URINE GLUCOSE Negative (NEGATIVE); URINE LEUKOCYTE Small; URINE NITRATE Negative
[2023-05-10 16:48] LABS: URINE BACTERIA 690.4 uL (0.0-1933); URINE EPITHELIAL CELLS 8.5 uL (0.0-38.8); URINE PROTEIN 300 (NEGATIVE); URINE RBC 1934.5 uL (0.0-20.8); URINE WBC 632.3 uL (0.0-23.2)
[2023-05-10] MEDS ORDERED: IPRATROPIUM BROMIDE 0.5 MG/2.5 ML AMPUL.NEB IH SCH (20:04)
[2023-05-10] MEDS ORDERED: FUROsemide 20 MG/2 ML VIAL IV SCH (20:07)
[2023-05-10] MEDS ORDERED: SODIUM POLYSTYRENE SULFONATE 15 G/4 TSP TSP PO SCH (20:11)
[2023-05-10] MEDS ORDERED: ONDANSETRON HCL 4 MG in 0.9 % SODIUM CHLORIDE 50 ML IV PRN (20:15)
[2023-05-10] MEDS ORDERED: ACETAMINOPHEN 500 MG GEL..CAP PO PRN (20:15)
[2023-05-10 21:40] LABS: MAGNESIUM 2.8 mg/dL (1.8-2.4)
[2023-05-10 21:44] LABS: INR 1.06; PARTIAL THROMBOPLASTIN TIME 27.3 SECONDS (22.0-34.0); PROTHROMBIN TIME 11.1 SECONDS (9.0-11.5)
[2023-05-10 22:59] LABS: C-REACTIVE PROTEIN 2.29 MG/DL (0.00-0.29); FERRITIN 2227.8 NG/ML (26-388)
[2023-05-11] MEDS ORDERED: LEVOTHYROXINE SODIUM 50 MCG TABLET PO SCH (06:00)
[2023-05-11] MEDS ORDERED: FAMOTIDINE/PF 20 MG/2 ML VIAL ONE (08:09)
[2023-05-11] MEDS ORDERED: ENOXAPARIN SODIUM 40 MG/0.4 ML SYRINGE SUBCUTANEO SCH (09:00)
[2023-05-11] MEDS ORDERED: FAMOTIDINE/PF 20 MG in 0.9 % SODIUM CHLORIDE 8 ML IV PUSH SCH (09:00)
[2023-05-11] MEDS ORDERED: hydrALAZINE HCL 25 MG TABLET PO SCH (09:00)
[2023-05-11] MEDS ORDERED: METOLAZONE 2.5 MG TABLET PO SCH (09:00)
[2023-05-11] MEDS ORDERED: CEFTRIAXONE SODIUM 2,000 MG in 0.9 % SODIUM CHLORIDE 100 ML IV SCH (09:00)
[2023-05-11] MEDS ORDERED: NITROGLYCERIN IN 5 % DEXTROSE 250 ML IV SCH (11:00)
[2023-05-12] MEDS ORDERED: 0.9 % SODIUM CHLORIDE 10 ML VIAL IJ ONE (07:31)
[2023-05-12] MEDS ORDERED: REMDESIVIR 100 MG VIAL IV ONE (09:00)
[2023-05-13 08:06] LABS: MEAN CELL VOLUME 74.4 fL (80.0-100.00); MEAN CORPUSCULAR HGB CONC 32.9 g/dl (32.0-36.0); PLATELET COUNT 151 K/uL (150-450); RED BLOOD COUNT 2.95 M/uL (4.00-6.00); RED CELL DISTRIBUTION WIDTH 15.9 % (11.5-14.5)
[2023-05-13 08:08] LABS: MEAN CORPUSCULAR HEMOGLOBIN 24.4 pg (27.00-32.0)
[2023-05-13 08:09] LABS: HEMOGLOBIN 7.2 g/dL (13-16.00)
[2023-05-13 08:33] LABS: ALBUMIN 2.2 gm/dL (3.4-5.0); BILIRUBIN TOTAL 0.19 mg/dL (0.3-1.2); CALCIUM 8.1 mg/dL (8.5-10.1); CREATININE SERUM 3.04 mg/dL (0.70-1.30); GFR 19.78; GLOBULINA 2.3 G/DL (2.4-3.5); PHOSPHOROUS 4.8 mg/dL (2.5-4.9); POTASSIUM 5.64 mEq/L (3.5-5.1); TOTAL PROTEIN 4.5 gm/dL (6.4-8.2)
[2023-05-13 08:34] LABS: FERRITIN 1923.5 NG/ML (26-388)
[2023-05-13] MEDS ORDERED: REMDESIVIR 100 MG VIAL IV SCH (09:00)
[2023-05-13] MEDS ORDERED: ENOXAPARIN SODIUM 30 MG/0.3 ML SYRINGE SUBCUTANEO SCH (09:00)
[2023-05-13] MEDS ORDERED: LEVOTHYROXINE SODIUM 100 MCG/VIAL VIAL IV SCH (09:00)
[2023-05-13] MEDS ORDERED: ENALAPRILAT DIHYDRATE 1.25 MG/ML VIAL IV PRN (22:00)
[2023-05-14] MEDS ORDERED: LEVOTHYROXINE SODIUM 75 MCG TABLET PO SCH (06:00)
[2023-05-14] MEDS ORDERED: hydrALAZINE HCL 50 MG TABLET PO SCH (09:00)
[2023-05-14] MEDS ORDERED: AMLODIPINE BESYLATE 10 MG TABLET PO ONE (14:30)
[2023-05-15] MEDS ORDERED: FAMOTIDINE/PF 20 MG/2 ML VIAL ONE (07:49)
[2023-05-15 08:53] LABS: URINE PROT QUANT 24HR 86.5 MG/DL
[2023-05-15 08:59] LABS: URINE PROT QUANT 24 HR 1600.25 MG/24HR (42-225)
[2023-05-15 12:36] LABS: HEMATOCRIT 34.8 % (39.0-48.0); MEAN CELL VOLUME 77.9 fL (80.0-100.00); MEAN CORPUSCULAR HEMOGLOBIN 26.3 pg (27.00-32.0); MEAN CORPUSCULAR HGB CONC 33.8 g/dl (32.0-36.0); PLATELET COUNT 154 K/uL (150-450); RED BLOOD COUNT 4.47 M/uL (4.00-6.00); RED CELL DISTRIBUTION WIDTH 17.2 % (11.5-14.5)
[2023-05-15 12:38] LABS: HEMOGLOBIN 11.8 g/dL (13-16.00)
[2023-05-15 14:38] LABS: CREATINE CLEARANCE 11.8 ML/MIN (97-137); CREATININE SERUM 2.81 mg/dL (0.8-1.3)
[2023-05-16] MEDS ORDERED: hydrALAZINE HCL 20 MG VIAL IV STA (07:54)
[2023-05-16] MEDS ORDERED: hydrALAZINE HCL 50 MG TABLET PO SCH (09:00)
[2023-05-16 10:26] LABS: FERRITIN 1943.6 NG/ML (26-388)
== END 2023-05-16 16:23 | disposition home or self-care (01) | DRG 291 ==
LOC: ER 14:23 → SEC-K 20:29 → SURH 20:29 → MEDJ 22:44 → SURH 05-11 04:11
PROVIDERS: General Practice; Internal Medicine Nephrology; ADMIT Internal Medicine; ATTEND Internal Medicine
PROC: BW21ZZZ Computerized Tomography (CT Scan) of Abdomen and Pelvis (ICD-10-PCS; 2023-05-10)
PROC: BW24ZZZ Computerized Tomography (CT Scan) of Chest and Abdomen (ICD-10-PCS; 2023-05-10)
PROC: 0W993ZZ Drainage of Right Pleural Cavity, Percutaneous Approach (ICD-10-PCS; principal; 2023-05-11)
PROC: 4A12X4Z Monitoring of Cardiac Electrical Activity, External Approach (ICD-10-PCS; 2023-05-11)
PROC: 0W9B3ZZ Drainage of Left Pleural Cavity, Percutaneous Approach (ICD-10-PCS; 2023-05-12)
PROC: XW033E5 Introduction of Remdesivir Anti-infective into Peripheral Vein, Percutaneous Approach, New Technology Group 5 (ICD-10-PCS; 2023-05-12)
PROC: 30233N1 Transfusion of Nonautologous Red Blood Cells into Peripheral Vein, Percutaneous Approach (ICD-10-PCS; 2023-05-13)
DX: I13.0 Hypertensive heart and chronic kidney disease with heart failure and stage 1 through stage 4 chronic kidney disease, or unspecified chronic kidney disease (principal); U07.1 COVID-19; N17.9 Acute kidney failure, unspecified; N39.0 Urinary tract infection, site not specified; I31.39 Other pericardial effusion (noninflammatory); I50.9 Heart failure, unspecified; D63.1 Anemia in chronic kidney disease; E03.9 Hypothyroidism, unspecified; I27.20 Pulmonary hypertension, unspecified; I25.10 Atherosclerotic heart disease of native coronary artery without angina pectoris; B96.5 Pseudomonas (aeruginosa) (mallei) (pseudomallei) as the cause of diseases classified elsewhere; Z74.01 Bed confinement status; N18.9 Chronic kidney disease, unspecified; Z20.822 Contact with and (suspected) exposure to COVID-19; F03.90 Unspecified dementia, unspecified severity, without behavioral disturbance, psychotic disturbance, mood disturbance, and anxiety

== ENCOUNTER 2023-05-26 08:46 | Inpatient (IN) | payer OTHER ==
[~2023-05-26] VITALS: Ht 167.6 cm; Wt 52.2 kg
[2023-05-26] MEDS ORDERED: COZAAR25 MG PO (09:08)
[2023-05-26] MEDS ORDERED: CARVEDILOL ER40 MG (09:09)
[2023-05-26] MEDS ORDERED: 0.9 % SODIUM CHLORIDE 1,000 ML IV STA (09:33)
[2023-05-26 10:32] LABS: HEMATOCRIT 36.9 % (39.0-48.0); MEAN CELL VOLUME 77.6 fL (80.0-100.00); MEAN CORPUSCULAR HEMOGLOBIN 25.2 pg (27.00-32.0); MEAN CORPUSCULAR HGB CONC 32.5 g/dl (32.0-36.0); PLATELET COUNT 181 K/uL (150-450); RED BLOOD COUNT 4.76 M/uL (4.00-6.00); RED CELL DISTRIBUTION WIDTH 17.7 % (11.5-14.5)
[2023-05-26 10:35] LABS: ALBUMIN 2.4 gm/dL (3.4-5.0); BILIRUBIN TOTAL 0.45 mg/dL (0.3-1.2); BILIRUBIN,CONJUGATED 0.12 mg/dL (0.0-0.2); BILIRUBIN,UNCONJUGATED 0.33 mg/dL (0.0-0.6); CALCIUM 8.4 mg/dL (8.5-10.1); CREATININE SERUM 2.18 mg/dL (0.70-1.30); GFR 29.03; POTASSIUM 4.86 mEq/L (3.5-5.1); TOTAL PROTEIN 5.2 gm/dL (6.4-8.2)
[2023-05-26 10:41] LABS: URINE APPEARANCE Cloudy; URINE BILIRRUBIN Negative (NEGATIVE); URINE BLOOD Large; URINE COLOR Yellow; URINE GLUCOSE Negative (NEGATIVE); URINE LEUKOCYTE Trace; URINE NITRATE Negative; URINE UROBILINOGEN 0.2 E.U./dl
[2023-05-26 10:43] LABS: URINE BACTERIA 42.8 uL (0.0-1933); URINE EPITHELIAL CELLS 5.1 uL (0.0-38.8); URINE RBC 736.8 uL (0.0-20.8); URINE WBC 55.3 uL (0.0-23.2)
[2023-05-26 11:19] LABS: URINE PROTEIN 100 (NEGATIVE)
[2023-05-26] MEDS ORDERED: IPRATROPIUM BROMIDE 0.5 MG/2.5 ML AMPUL.NEB IH SCH (18:39)
[2023-05-26] MEDS ORDERED: FUROsemide 40 MG/4 ML VIAL IV ONE (18:45)
[2023-05-26] MEDS ORDERED: ONDANSETRON HCL 4 MG in 0.9 % SODIUM CHLORIDE 50 ML IV PRN (18:45)
[2023-05-26] MEDS ORDERED: NITROGLYCERIN IN 5 % DEXTROSE 250 ML IV SCH (18:45)
[2023-05-26] MEDS ORDERED: ACETAMINOPHEN 500 MG GEL..CAP PO PRN (18:45)
[2023-05-26 19:42] LABS: INR 1.07; PARTIAL THROMBOPLASTIN TIME 23.9 SECONDS (22.0-34.0); PROTHROMBIN TIME 11.2 SECONDS (9.0-11.5)
[2023-05-26 20:18] LABS: MAGNESIUM 2.5 mg/dL (1.8-2.4); PHOSPHOROUS 3.7 mg/dL (2.5-4.9)
[2023-05-26 20:27] LABS: ABG PH 7.409 (7.35-7.45); ABG PO2 83.4 mmHg (80-100); ABG pCO2 34.4 mmHg (35-45); BASE EXCESS -2.6 mmol/l; BICARBONATE 21.3 mmol/l (23-25); SaO2 96.2 %; Tco2 22.3 mmol/l; allen test SATISFACTORY; puncture site RADIAL LEFT
[2023-05-26 20:28] LABS: o2 21 %
[2023-05-27] MEDS ORDERED: FUROsemide 20 MG/2 ML VIAL IV SCH (01:00)
[2023-05-27] MEDS ORDERED: LEVOTHYROXINE SODIUM 50 MCG TABLET PO SCH (06:00)
[2023-05-27] MEDS ORDERED: ATORVASTATIN CALCIUM 40 MG TABLET PO SCH (09:00)
[2023-05-27] MEDS ORDERED: FAMOTIDINE/PF 20 MG in 0.9 % SODIUM CHLORIDE 8 ML IV PUSH SCH (09:00)
[2023-05-27] MEDS ORDERED: hydrALAZINE HCL 25 MG TABLET PO SCH (09:00)
[2023-05-28 07:14] LABS: HEMATOCRIT 31.2 % (39.0-48.0); HEMOGLOBIN 10.3 g/dL (13-16.00); MEAN CELL VOLUME 78.3 fL (80.0-100.00); MEAN CORPUSCULAR HEMOGLOBIN 25.9 pg (27.00-32.0); MEAN CORPUSCULAR HGB CONC 33.1 g/dl (32.0-36.0); PLATELET COUNT 158 K/uL (150-450); RED BLOOD COUNT 3.99 M/uL (4.00-6.00); RED CELL DISTRIBUTION WIDTH 17.4 % (11.5-14.5)
[2023-05-28 08:03] LABS: ALBUMIN 2.8 gm/dL (3.4-5.0); BILIRUBIN TOTAL 0.31 mg/dL (0.3-1.2); CALCIUM 8.7 mg/dL (8.5-10.1); CREATININE SERUM 2.61 mg/dL (0.70-1.30); GFR 23.59; GLOBULINA 2.4 G/DL (2.4-3.5); POTASSIUM 5.22 mEq/L (3.5-5.1); TOTAL PROTEIN 5.2 gm/dL (6.4-8.2)
[2023-05-28] MEDS ORDERED: ISOSORBIDE MONONITRATE 30 MG TABLET PO SCH (09:00)
[2023-05-28] MEDS ORDERED: NIFEDIPINE 30 MG TAB.SA.OSM PO SCH (17:00)
[2023-05-28] MEDS ORDERED: ENALAPRILAT DIHYDRATE 1.25 MG/ML VIAL IV PRN (22:15)
[2023-05-29] MEDS ORDERED: hydrALAZINE HCL 25 MG TABLET PO SCH (17:00)
[2023-05-29] MEDS ORDERED: FUROsemide 20 MG/2 ML VIAL IV SCH (21:00)
[2023-05-30 08:03] LABS: HEMATOCRIT 34.8 % (39.0-48.0); HEMOGLOBIN 11.3 g/dL (13-16.00); MEAN CELL VOLUME 76.9 fL (80.0-100.00); MEAN CORPUSCULAR HGB CONC 32.5 g/dl (32.0-36.0); PLATELET COUNT 163 K/uL (150-450); RED BLOOD COUNT 4.52 M/uL (4.00-6.00); RED CELL DISTRIBUTION WIDTH 17.3 % (11.5-14.5)
[2023-05-30 08:05] LABS: CALCIUM 8.7 mg/dL (8.5-10.1); CREATININE SERUM 2.33 mg/dL (0.70-1.30); GFR 26.89; POTASSIUM 5.65 mEq/L (3.5-5.1)
[2023-05-30] MEDS ORDERED: ISOSORBIDE MONONITRATE 30 MG TABLET PO ONE (10:10)
[2023-05-30] MEDS ORDERED: SODIUM POLYSTYRENE SULFONATE 15 G/4 TSP TSP PO ONE (10:30)
== END 2023-05-30 21:25 | disposition home or self-care (01) | DRG 291 ==
LOC: ER 08:46 → MEDI 18:53 → ICU-2 18:53 → SEC-K 05-27 14:15 → MEDJ 05-27 14:34
PROVIDERS: General Practice; Internal Medicine; Internal Medicine Nephrology; ADMIT Internal Medicine; ATTEND Internal Medicine
PROC: BW21ZZZ Computerized Tomography (CT Scan) of Abdomen and Pelvis (ICD-10-PCS; principal; 2023-05-26)
PROC: B246ZZZ Ultrasonography of Right and Left Heart (ICD-10-PCS; 2023-05-26)
PROC: 3E0F7GC Introduction of Other Therapeutic Substance into Respiratory Tract, Via Natural or Artificial Opening (ICD-10-PCS; 2023-05-26)
PROC: 0W993ZZ Drainage of Right Pleural Cavity, Percutaneous Approach (ICD-10-PCS; 2023-05-27)
PROC: 4A12X4Z Monitoring of Cardiac Electrical Activity, External Approach (ICD-10-PCS; 2023-05-27)
DX: I13.0 Hypertensive heart and chronic kidney disease with heart failure and stage 1 through stage 4 chronic kidney disease, or unspecified chronic kidney disease (principal); I50.33 Acute on chronic diastolic (congestive) heart failure; I48.20 Chronic atrial fibrillation, unspecified; J90 Pleural effusion, not elsewhere classified; N17.8 Other acute kidney failure; N18.30 Chronic kidney disease, stage 3 unspecified; E03.9 Hypothyroidism, unspecified; E78.49 Other hyperlipidemia

== ENCOUNTER 2023-08-20 11:40 | Inpatient (IN) | payer OTHER ==
[~2023-08-20] VITALS: Ht 167.6 cm; Wt 62.1 kg
[~2023-08-20 11:40] MED LIST changes: +AMLODIPINE BESYL5 MG; +CARVEDILOL ER40 MG; +CARVEDILOL3.125 MG; +CLONIDINE HCL0.2 MG; +COZAAR25 MG PO; +HYDRALAZINE HC100 MG; +ISOSORBIDE MONO60 M2; +LASIX20 MG; +LOSARTAN POTAS100 MG; +METOLAZONE2.5 MG
--- NOTE | 2023-08-20 12:00 | NUR ---
SE RECIBE PTE ALERTA Y ORIENTADO EN PERSONA, EL MISMO REIERE QUE DESDE EL CELSO DE JANN O PUEDE NI FULFILLMENT COORDINATOR NI ALZAR KAYE MANO Y PIERNA IZQUIERDA. SE REALIZA EKG Y SE PRESENTA A , SE UBICA A PTE BAJO OBSERVACION.
--- NOTE | 2023-08-20 12:07 | NUR ---
PTE ALERTA Y ORIENTADO EN PERSONA. RN MARSH EDUCA A PTE SOBRE TX MEDICO, EL MISMO REFIERE ENTENDER. SE MARGARETH MUESTRAS DE LAB BAJO MEDIDAS AEPTICAS Y SE CANALIZA A PTE. SE HACE ENTREGA DE ENVASE PARA U/A PENDIENTE.
[2023-08-20] MEDS ORDERED: 0.9 % SODIUM CHLORIDE 1,000 ML IV SCH (12:15)
[2023-08-20 12:51] LABS: HEMATOCRIT 25.8 % (39.0-48.0); MEAN CELL VOLUME 73.4 fL (80.0-100.00); MEAN CORPUSCULAR HGB CONC 32.7 g/dl (32.0-36.0); PLATELET COUNT 220 K/uL (150-450); RED BLOOD COUNT 3.52 M/uL (4.00-6.00)
[2023-08-20 12:52] LABS: INR 1.04; PARTIAL THROMBOPLASTIN TIME 21.3 SECONDS (22.0-34.0); PROTHROMBIN TIME 10.9 SECONDS (9.0-11.5)
[2023-08-20 12:56] LABS: CALCIUM 8.2 mg/dL (8.5-10.1); CREATININE SERUM 2.72 mg/dL (0.70-1.30); GFR 22.49; POTASSIUM 4.03 mEq/L (3.5-5.1)
[2023-08-20 13:00] LABS: HEMOGLOBIN 8.5 g/dL (13-16.00); MEAN CORPUSCULAR HEMOGLOBIN 24.1 pg (27.00-32.0)
[2023-08-20 13:32] LABS: PH,URINE 5.5 (5.0-8.0); URINE APPEARANCE Cloudy; URINE BILIRRUBIN Negative (NEGATIVE); URINE BLOOD Large; URINE COLOR Yellow; URINE GLUCOSE Negative (NEGATIVE); URINE LEUKOCYTE Large; URINE NITRATE Negative; URINE PROTEIN 30 (NEGATIVE); URINE UROBILINOGEN 0.2 E.U./dl
[2023-08-20 13:33] LABS: URINE BACTERIA 803.8 uL (0.0-1933); URINE EPITHELIAL CELLS 5.1 uL (0.0-38.8); URINE RBC 2693.1 uL (0.0-20.8); URINE WBC 462.5 uL (0.0-23.2)
[2023-08-20] MEDS ORDERED: CEFTRIAXONE SODIUM 1,000 MG VIAL IV ONE (15:00)
[2023-08-20] MEDS ORDERED: CEFTRIAXONE SODIUM 1,000 MG VIAL ONE (15:17)
[2023-08-20] MEDS ORDERED: ATORVASTATIN CALCIUM 40 MG TABLET PO SCH (18:56)
[2023-08-20] MEDS ORDERED: ASPIRIN 81 MG TAB.CHEW PO SCH (18:56)
[2023-08-20] MEDS ORDERED: CEFTRIAXONE SODIUM 2,000 MG in 0.9 % SODIUM CHLORIDE 100 ML IV SCH (18:56)
[2023-08-20] MEDS ORDERED: ACETAMINOPHEN 500 MG GEL..CAP PO PRN (19:00)
[2023-08-20] MEDS ORDERED: IRON FUM,PS/FOLIC/BCOMP,C NO.9 1 CAP CAPSULE PO SCH (19:13)
[2023-08-20 22:10] LABS: MAGNESIUM 2.3 mg/dL (1.8-2.4); PHOSPHOROUS 4.3 mg/dL (2.5-4.9)
[2023-08-20] MEDS ORDERED: IRON FUM,PS/FOLIC/BCOMP,C NO.9 1 CAP CAPSULE PO ONE (22:28)
[2023-08-20] MEDS ORDERED: ATORVASTATIN CALCIUM 40 MG TABLET PO ONE (22:28)
[2023-08-21] MEDS ORDERED: FUROsemide 20 MG/2 ML VIAL IV SCH ×2 (01:00→21:00)
[2023-08-21 06:50] LABS: MAGNESIUM 2.2 mg/dL (1.8-2.4); PHOSPHOROUS 4.6 mg/dL (2.5-4.9)
[2023-08-21] MEDS ORDERED: FAMOTIDINE/PF 20 MG in 0.9 % SODIUM CHLORIDE 8 ML IV PUSH SCH (09:00)
[2023-08-21] MEDS ORDERED: FUROsemide 40 MG TABLET PO SCH (09:00)
[2023-08-21] MEDS ORDERED: LOSARTAN POTASSIUM 25 MG TABLET PO SCH (09:00)
[2023-08-22 14:55] LABS: HEMATOCRIT 28.8 % (39.0-48.0); MEAN CELL VOLUME 74.3 fL (80.0-100.00); MEAN CORPUSCULAR HEMOGLOBIN 24.2 pg (27.00-32.0); MEAN CORPUSCULAR HGB CONC 32.6 g/dl (32.0-36.0); PLATELET COUNT 247 K/uL (150-450); RED BLOOD COUNT 3.88 M/uL (4.00-6.00); RED CELL DISTRIBUTION WIDTH 16.7 % (11.5-14.5)
[2023-08-22 14:56] LABS: HEMOGLOBIN 9.4 g/dL (13-16.00)
[2023-08-22 15:22] LABS: ALBUMIN 2.9 gm/dL (3.4-5.0); BILIRUBIN TOTAL 0.33 mg/dL (0.3-1.2); CREATININE SERUM 3.18 mg/dL (0.70-1.30); GFR 18.78; GLOBULINA 3.3 G/DL (2.4-3.5); PHOSPHOROUS 6.3 mg/dL (2.5-4.9); POTASSIUM 4.99 mEq/L (3.5-5.1); TOTAL PROTEIN 6.2 gm/dL (6.4-8.2)
[2023-08-22 15:29] LABS: C-REACTIVE PROTEIN 12.6 MG/DL (0.00-0.29)
[2023-08-23 07:59] LABS: PH,URINE 5.5 (5.0-8.0); URINE APPEARANCE Turbid; URINE BILIRRUBIN Negative (NEGATIVE); URINE BLOOD Large; URINE COLOR Yellow; URINE GLUCOSE Negative (NEGATIVE); URINE LEUKOCYTE Large; URINE NITRATE Negative; URINE UROBILINOGEN 0.2 E.U./dl
[2023-08-23 08:09] LABS: URINE BACTERIA 1524.5 uL (0.0-1933); URINE EPITHELIAL CELLS 75.7 uL (0.0-38.8); URINE RBC 262.6 uL (0.0-20.8)
[2023-08-23 09:07] LABS: URINE PROTEIN 300 (NEGATIVE); URINE WBC > 5548.3 uL (0.0-23.2)
[2023-08-24] MEDS ORDERED: LACTULOSE 20 G/30 ML BLIST.PACK PO STA (16:28)
[2023-08-24] MEDS ORDERED: MINERAL OIL 30 ML BLIST.PACK PO STA (16:28)
[2023-08-24] MEDS ORDERED: MAGNESIUM HYDROXIDE 30 ML BLIST.PACK PO STA (16:29)
[2023-08-25] MEDS ORDERED: 0.9 % SODIUM CHLORIDE 1,000 ML IV SCH (08:45)
[2023-08-25] MEDS ORDERED: SUCRALFATE 1 G TABLET PO SCH (09:00)
[2023-08-25] MEDS ORDERED: SOD FERRIC GLUC COMPLX/SUCROSE 62.5 MG in 0.9 % SODIUM CHLORIDE 50 ML IV SCH (09:00)
[2023-08-25] MEDS ORDERED: FUROsemide 20 MG/2 ML VIAL IV SCH (09:00)
[2023-08-25 10:51] LABS: HEMATOCRIT 27.8 % (39.0-48.0); MEAN CELL VOLUME 74.8 fL (80.0-100.00); MEAN CORPUSCULAR HEMOGLOBIN 24.1 pg (27.00-32.0); MEAN CORPUSCULAR HGB CONC 32.2 g/dl (32.0-36.0); PLATELET COUNT 235 K/uL (150-450); RED BLOOD COUNT 3.72 M/uL (4.00-6.00); RED CELL DISTRIBUTION WIDTH 16.4 % (11.5-14.5)
[2023-08-25] MEDS ORDERED: LACTULOSE 20 G/30 ML BLIST.PACK PO STA (10:52)
[2023-08-25] MEDS ORDERED: MINERAL OIL 30 ML BLIST.PACK PO STA (10:52)
[2023-08-25] MEDS ORDERED: MAGNESIUM HYDROXIDE 400 MG/5 ML ML PO STA (10:53)
[2023-08-25 11:23] LABS: CALCIUM 8.3 mg/dL (8.5-10.1); CREATININE SERUM 3.15 mg/dL (0.70-1.30); GFR 18.99; POTASSIUM 5.03 mEq/L (3.5-5.1)
[2023-08-26] MEDS ORDERED: NA PHOS,M-B/NA PHOS,DI-BA 1 BOTTLE ENEMA RECTAL NR (15:00)
[2023-08-26] MEDS ORDERED: AMLODIPINE BESYLATE 5 MG TABLET PO SCH (15:28)
[2023-08-26] MEDS ORDERED: SODIUM CHLORIDE 0.45 % 1,000 ML IV SCH (15:30)
[2023-08-26 22:00] LABS: HEMATOCRIT 24.8 % (39.0-48.0); MEAN CELL VOLUME 74.9 fL (80.0-100.00); MEAN CORPUSCULAR HGB CONC 32.4 g/dl (32.0-36.0); PLATELET COUNT 193 K/uL (150-450); RED BLOOD COUNT 3.32 M/uL (4.00-6.00); RED CELL DISTRIBUTION WIDTH 16.4 % (11.5-14.5)
[2023-08-26 22:11] LABS: CREATININE SERUM 2.64 mg/dL (0.70-1.30); GFR 23.28; POTASSIUM 5.47 mEq/L (3.5-5.1)
[2023-08-27] MEDS ORDERED: hydrALAZINE HCL 20 MG VIAL IV SCH (08:00)
[2023-08-27] MEDS ORDERED: FUROsemide 20 MG/2 ML VIAL IV SCH (08:15)
[2023-08-27] MEDS ORDERED: SODIUM CL 0.9% 100 ML IV.SOLN IV ONE ×2 (08:50→09:43)
[2023-08-27] MEDS ORDERED: ATORVASTATIN CALCIUM 40 MG TABLET PO SCH (09:00)
[2023-08-27] MEDS ORDERED: ALBUMIN HUMAN-25 0.25GM/ML (50ML) VIAL IV SCH (09:00)
[2023-08-29 06:57] LABS: HEMATOCRIT 31.9 % (39.0-48.0); HEMOGLOBIN 10.7 g/dL (13-16.00); MEAN CELL VOLUME 77.5 fL (80.0-100.00); MEAN CORPUSCULAR HEMOGLOBIN 26.1 pg (27.00-32.0); MEAN CORPUSCULAR HGB CONC 33.6 g/dl (32.0-36.0); PLATELET COUNT 167 K/uL (150-450); RED BLOOD COUNT 4.11 M/uL (4.00-6.00); RED CELL DISTRIBUTION WIDTH 17.7 % (11.5-14.5)
[2023-08-31 06:37] LABS: HEMATOCRIT 36.1 % (39.0-48.0); HEMOGLOBIN 11.8 g/dL (13-16.00); MEAN CELL VOLUME 77.9 fL (80.0-100.00); MEAN CORPUSCULAR HEMOGLOBIN 25.6 pg (27.00-32.0); MEAN CORPUSCULAR HGB CONC 32.8 g/dl (32.0-36.0); PLATELET COUNT 191 K/uL (150-450); RED BLOOD COUNT 4.63 M/uL (4.00-6.00); RED CELL DISTRIBUTION WIDTH 18.2 % (11.5-14.5)
[2023-08-31 07:13] LABS: ALBUMIN 2.3 gm/dL (3.4-5.0); BILIRUBIN TOTAL 0.39 mg/dL (0.3-1.2); CALCIUM 8.1 mg/dL (8.5-10.1); CREATININE SERUM 1.85 mg/dL (0.70-1.30); GFR 35.09; GLOBULINA 2.4 G/DL (2.4-3.5); POTASSIUM 5.05 mEq/L (3.5-5.1); TOTAL PROTEIN 4.7 gm/dL (6.4-8.2)
[2023-08-31 10:22] LABS: ABG PH 7.318 (7.35-7.45); ABG PO2 95.7 mmHg (80-100); BICARBONATE 19.6 mmol/l (23-25); SaO2 96.5 %; Tco2 20.8 mmol/l; allen test SATISFACTORY; o2 21 %; puncture site RADIAL RIGHT
== END 2023-09-03 16:55 | disposition home or self-care (01) | DRG 64 ==
LOC: ER 11:40 → EDBD 12:41 → ER 12:41 → SEC-K 19:20 → MEDI 19:20
PROVIDERS: Emergency Medicine; General Practice; Internal Medicine Critical Care Medicine; Internal Medicine Infectious Disease; ADMIT Internal Medicine; ATTEND Internal Medicine
PROC: BW28ZZZ Computerized Tomography (CT Scan) of Head (ICD-10-PCS; principal; 2023-08-20)
PROC: B246ZZZ Ultrasonography of Right and Left Heart (ICD-10-PCS; 2023-08-20)
PROC: B345ZZZ Ultrasonography of Bilateral Common Carotid Arteries (ICD-10-PCS; 2023-08-20)
PROC: 0W9930Z Drainage of Right Pleural Cavity with Drainage Device, Percutaneous Approach (ICD-10-PCS; 2023-08-21)
PROC: 4A12X4Z Monitoring of Cardiac Electrical Activity, External Approach (ICD-10-PCS; 2023-08-21)
PROC: 02HV33Z Insertion of Infusion Device into Superior Vena Cava, Percutaneous Approach (ICD-10-PCS; 2023-08-24)
PROC: 30233N1 Transfusion of Nonautologous Red Blood Cells into Peripheral Vein, Percutaneous Approach (ICD-10-PCS; 2023-08-27)
DX: I63.511 Cerebral infarction due to unspecified occlusion or stenosis of right middle cerebral artery (principal); I50.33 Acute on chronic diastolic (congestive) heart failure; I13.0 Hypertensive heart and chronic kidney disease with heart failure and stage 1 through stage 4 chronic kidney disease, or unspecified chronic kidney disease; N17.8 Other acute kidney failure; N39.0 Urinary tract infection, site not specified; J90 Pleural effusion, not elsewhere classified; J93.9 Pneumothorax, unspecified; G81.91 Hemiplegia, unspecified affecting right dominant side; N18.30 Chronic kidney disease, stage 3 unspecified; D63.1 Anemia in chronic kidney disease